=== PATIENT | male | born 1985 | race Caucasian/White ===

== ENCOUNTER 2025-06-01 15:40 | Emergency (ER) | payer OTHER, SELFPAY ==
[2025-06-01 15:44] VITALS: BP 164/113; PULSE 86; TEMP 36.6; O2SAT 99; BMI 31.9
--- NOTE | 2025-06-01 16:18 | CT_ITS ---
The [address] [address] Patient Name: NELLY VELAZQUEZ MRN: [id number] date: 1985 Sex: M Assigned Patient Location: ER Current Patient Location: ER Accession/Order Number: [id number] Exam Date: 06/01/2025 16:15 Report Date: 06/01/2025 16:28 At the request of: LIONEL KIM MD Procedure: CT head/brain wo con CT head/brain wo con 06/01/2025 4:15 PM SIGNS AND SYMPTOMS: Left hand weakness TECHNIQUE:Multi-detector CT axial slices of the brain were obtained without IV contrast. CT was performed with one or more of the following dose reduction techniques: Automated exposure control, adjustment of the mA and/or kV according to patient size, or use of iterative reconstruction technique. COMPARISON: None. FINDINGS: There is no shift of the midline structures, acute intracranial bleeding, mass effects, or evidence of acute ischemia. The ventricular system is normal in size. The brainstem and the cerebellum are unremarkable. The visualized intraorbital contents, the visualized paranasal sinuses, and the infratemporal soft tissues show no acute abnormality. The osseous structures in the skull base and the calvarium show no abnormality. CT/CT head/brain wo con IMPRESSION: Normal noncontrasted CT brain. Impression dictated by: George Ridley M.D. 06/01/2025 4:28 PM Dictation Location: [place] [address] Electronically authenticated by: [id number] Y Date: 06/01/2025 16:28
[2025-06-01 16:32] LABS: Hematocrit 44.7 % (42.0-54.0); Hemoglobin 15.2 g/dL (14.0-18.0); Mean Corpuscular HGB Conc 34.0 g/dL (29.9-35.2); Mean Corpuscular Hemoglobin 34.1 pg (25.9-34.0); Mean Corpuscular Volume 100.2 fL (80.0-94.0); Platelet Count 343 10^3/uL (150-450); Red Blood Count 4.46 10^6/uL (4.70-6.10); White Blood Count 7.0 10^3/uL (4.0-11.0)
[2025-06-01 16:42] LABS: Basophils Abs Manual 0.07 10^3/uL (0.00-0.10); Basophils Percent Manual 1.0 % (0.2-2.0); Eosinophils Absolute Manual 0.14 10^3/uL (0.00-0.70); Eosinophils Percent Manual 2.0 % (0.9-7.0); Lymphocytes Absolute Manual 2.10 10^3/uL (1.20-3.80); Lymphocytes Percent Manual 30.0 % (20.5-60.0); Monocytes Absolute Manual 0.63 10^3/uL (0.30-0.80); Monocytes Percent Manual 9.0 % (1.7-12.0)
[2025-06-01 16:43] LABS: Segmented Neut Absolute Manual 4.06 10^3/uL (1.4-6.5); Segmented Neutrophils % Manual 58.0 (43.0-75.0)
--- NOTE | 2025-06-01 16:43 | PC.NURSE ---
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
--- NOTE | 2025-06-01 16:46 | ED_ITS ---
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 after almost 2 weeks ago he noted that he had this left hand weakness, it mostly just when he is using his hand to do any fine skills like tying his shoes or grabbing something with his left hand The patient mentioned that it all started 2 weeks ago and at the same time he noted that he had this insect bite to his toe on the left foot that resolved there was no fever associated with that and it got better by itself The patient have a history of high blood pressure but he does not take any medication for it he was told that he have that in his last visit his primary care but he was not diagnosed with hypertension Patient have no headache no nausea no vomiting no blurry vision no weakness and he never had any weakness in any other extremity or any difficulty walking Related Data Home Medications ?Medication ?Instructions ?Recorded ?Confirmed No Known Home Medications 06/01/2505/18 Allergies Allergy/AdvReac Type Severity Reaction Status Date / Time codeine Allergy Vomiting Verified 06/01/25 15:48 Review of Systems ROS Status of ROS 10 or more systems reviewed and unremark able except as noted in history and below PFSH PFSH Social History Little interest or pleasure in doing things: not at all Feeling down, depressed, or hopeless: not at all Exam Narrative Exam Narrative: Nurses notes and vital signs reviewed and patient is not hypoxic. General: Well-appearing and in no apparent distress. Skin: Warm, dry, no pallor noted. No rash. Head: Normocephalic, atraumatic. Neck: Supple, non-tender. Cardiovascular: Regular Rate and Rhythm without murmur, gallop or rub. Respiratory: No accessory muscle use or respiratory distress. Lungs are clear to auscultation, no wheezing, rales or rhonchi Chest Wall: no tenderness Back: No midline thoracic or lumbar vertebral tenderness. No CVA tenderness Musculoskeletal: normal ROM, no calf or popliteal tenderness, no lower extremity edema/swelling GI: Abdomen is soft, non-distended. Normal bowel sounds. No masses appreciated. No tenderness to palpation. No rebound, guarding, or rigidity noted. Neurological: A&O x4. No cranial nerve dysfunction observed. No truncal ataxia. Moves all extremities. Sensation intact. Complete examination including cranial exam was normal but the patient did had a very significant weakness observed when he is trying to do any fine skills like tying his shoes as he is not trying to use all the fingers as his index and thumb fingers are very hard to move around Psychiatric: Cooperative and interactive. Normal mood and affect. Constitutional Vital Signs, click to edit/add: Last Vital Signs Temp 97.9 F 06/01/25 15:44 Pulse 78 06/01/25 17:07 Resp 16 06/01/25 17:07 BP 151/105 H 06/01/25 17:07 Pulse Ox 99 06/01/25 17:07 O2 Del Method Room Air 06/01/25 17:07 Course Vital Signs Vital signs: Vital Signs Temperature 97.9 F 06/01/25 15:44 Pulse Rate 86 06/01/25 15:44 Respiratory Rate 16 06/01/25 15:44 Blood Pressure 164/113 H 06/01/25 15:44 Pulse Oximetry 99 06/01/25 15:44 Oxygen Delivery Method Room Air 06/01/25 15:44 Temperature 97.9 F 06/01/25 15:44 Pulse Rate 78 06/01/25 17:07 Respiratory Rate 16 06/01/25 17:07 Blood Pressure 151/105 H 06/01/25 17:07 Pulse Oximetry 99 06/01/25 17:07 Oxygen Delivery Method Room Air 06/01/25 17:07 MDM - Extremity (Nontraumatic) MDM Narrative Medical decision making narrative: With a history of elevated blood pressure the patient had a CT head showing no acute pathology CBC and chemistry showed that the patient have some high MCV which could be secondary to vitamin B12 deficiency with patient history of alcohol use as well as should be evaluated But I did discuss the patient case with and the patient will follow-up with him at the outpatient for EMG Patient informed of the plan he will follow-up with the neurologist as outpatient in case of new symptoms the patient will come back to the ER Also the patient to follow-up with his primary care for further evaluation his hypertension The patient to follow-up with the primary care within 2 to 3 days and to come back to the ER in case of any worsening of the current symptoms or any new symptoms or concerns Lab Data Labs: Lab Results 06/01/25 Range/Units 16:26 WBC 7.0 (4.0-11.0) 10^3/uL RBC 4.46 L (4.70-6.10) 10^6/uL Hgb 15.2 (14.0-18.0) g/dL Hct 44.7 (42.0-54.0) % MCV 100.2 H (80.0-94.0) fL MCH 34.1 H (25.9-34.0) pg MCHC 34.0 (29.9-35.2) g/dL RDW 12.9 (11.0-15.0) % Plt Count 343 (150-450) 10^3/uL MPV 8.5 L (9.5-13.5) fL Seg Neuts % (Manual) 58.0 (43.0-75.0) Lymphocytes % (Manual) 30.0 (20.5-60.0) % Monocytes % (Manual) 9.0 (1.7-12.0) % Eosinophils % (Manual) 2.0 (0.9-7.0) % Basophils % (Manual) 1.0 (0.2-2.0) % Neutrophils # (Manual) 4.06 (1.4-6.5) 10^3/uL Lymphocytes # (Manual) 2.10 (1.20-3.80) 10^3/uL Monocytes # (Manual) 0.63 (0.30-0.80) 10^3/uL Eosinophils # (Manual) 0.14 (0.00-0.70) 10^3/uL Basophils # (Manual) 0.07 (0.00-0.10) 10^3/uL Sodium 136 (136-145) mmol/L Potassium 4.1 (3.5-5.1) mmol/L Chloride 98 (98-107) mmol/L Carbon Dioxide 28.9 (21.0-32.0) mmol/L Anion Gap 13.2 BUN 10.0 (7.0-18.0) mg/dL Creatinine 0.86 (0.70-1.30) mg/dL Est GFR ( Amer) >60 (>=60 mL/min/1.73m^2) Est GFR (Non-Af Amer) >60 (>=60 mL/min/1.73m^2) BUN/Creatinine Ratio 11.6 Glucose 89 (74-106) mg/dL Calcium 9.5 (8.5-10.1) mg/dL Total Bilirubin 0.4 (0.2-1.0) mg/dL AST 50 H (15-37) U/L ALT 88 H (16-63) U/L Alkaline Phosphatase 50 (46-116) U/L Total Protein 8.4 H (6.4-8.2) g/dL Albumin 4.4 (3.4-5.0) g/dL Globulin 4.0 g/dL Albumin/Globulin Ratio 1.1 Discharge Plan Discharge Chief Complaint: Extremity Problem, Nontraumatic Clinical Impression: Peripheral neuropathy, Elevated blood pressure reading Patient Disposition: Home, Self-Care Time of Disposition Decision: 16:57 Condition: Good Prescriptions / Home Meds: No Action No Known Home Medications Print Language: Amharic Instructions: Peripheral Neuropathy (ED) Additional Instructions: Please make sure you make an appointment with Dr. Porras as outpatient The patient to follow-up with the primary care within 2 to 3 days and to come back to the ER in case of any worsening of the current symptoms or any new symptoms or concerns Referrals: Walter Porras DO [Physician, Neurology] - 1 week Discharge Date/Time: 06/01/25 17:27
[2025-06-01 16:50] LABS: Alanine Aminotransferase 88 U/L (16-63); Albumin Globulin Ratio 1.1; Albumin Level 4.4 g/dL (3.4-5.0); Alkaline Phosphatase 50 U/L (46-116); Anion Gap 13.2; Aspartate Amino Transferase 50 U/L (15-37); Blood Urea Nitrogen 10.0 mg/dL (7.0-18.0); Calcium 9.5 mg/dL (8.5-10.1); Carbon Dioxide 28.9 mmol/L (21.0-32.0); Chloride 98 mmol/L (98-107); Estimated GFR (African America >60 (>=60 mL/min/1.73m^2); Estimated GFR (Non-African Ame >60 (>=60 mL/min/1.73m^2); Globulin 4.0 g/dL; Glucose 89 mg/dL (74-106); Potassium 4.1 mmol/L (3.5-5.1); Sodium 136 mmol/L (136-145); Total Protein 8.4 g/dL (6.4-8.2)
[2025-06-01 17:07] VITALS: BP 151/105; PULSE 78; O2SAT 99
== END 2025-06-01 17:27 | disposition home or self-care (01) ==
LOC: ER 17:14
PROVIDERS: Emergency Provider Emergency Medicine; PCP Family Medicine
DX: G62.9 Polyneuropathy, unspecified (principal); R03.0 Elevated blood-pressure reading, without diagnosis of hypertension
CPT/HCPCS: 36415; 70450; 80053; 85007; 85027; 99284